=== PATIENT | male | born 1995 | race African-American/Black ===

== ENCOUNTER 2021-07-17 02:26 | Emergency (ER) | payer MEDICAID ==
[~2021-07-17] VITALS: Ht 193 cm; Wt 77.6 kg
[2021-07-17 02:33] VITALS: BP 143/91
--- NOTE | 2021-07-17 02:40 | NUR ---
PT von c/o fell off skateboard approx 1.5hrs ago,injury to right forehead and rt elbow tdap up to date. Neurocheck done a/ox4 wnl.
[2021-07-17] MEDS ORDERED: CEPH500T PO (02:48)
[2021-07-17] MEDS ORDERED: CEPHALEXIN MONOHYDRATE 500 MG CAPSULE PO ONE ×2 (03:00→03:12)
[2021-07-17] MEDS ORDERED: HYDROCODONE/APAP 5/325MG TABLET PO ONE (03:00)
[2021-07-17] MEDS ORDERED: HYDROCODONE/APAP 5/325MG TABLET ONE (03:12)
--- NOTE | 2021-07-17 05:41 | NUR ---
Patient discharged to home in stable condition. Written and verbal after care instructions given. Patient verbalizes understanding of instruction. pt ambulatory with a steady gait
== END 2021-07-17 05:42 | disposition home or self-care (01) ==
LOC: ER 02:31
DX: S01.01XA Laceration without foreign body of scalp, initial encounter (principal); S50.01XA Contusion of right elbow, initial encounter; V00.131A Fall from skateboard, initial encounter; Y93.51 Activity, roller skating (inline) and skateboarding; Y92.89 Other specified places as the place of occurrence of the external cause; Y99.8 Other external cause status
CPT/HCPCS: 99283; J3490